=== PATIENT | male | born 1950 | race Caucasian/White ===

== ENCOUNTER → 2018-04-27 19:44 | Outpatient (CLI) | payer MEDICARE, BC, SELFPAY | PROVIDERS: Visit Provider Physician Assistant | DX: J02.9 Acute pharyngitis, unspecified (principal) | CPT/HCPCS: 87070 ==

== ENCOUNTER 2018-08-04 19:43 | Emergency (ER) | payer MEDICARE, BC, SELFPAY ==
[2018-08-04 19:51] VITALS: BP 146/85; PULSE 96; RESP 18; TEMP 38.2; O2SAT 99; BMI 25.4
--- NOTE | 2018-08-04 20:07 | ED_ITS ---
HPI - URI/Sore Throat General Chief Complaint: Upper Respiratory Symptoms Stated Complaint: sore throat/fever Time Seen by Provider: 08/04/18 19:45 Source: patient Mode of arrival: ambulatory Limitations: no limitations History of Present Illness HPI Narrative: 67-year-old male nonsmoker with history of AFib presents with a chief complaint of sore throat for the past few days. He states he has difficulty swallowing and has had fever as high as 100.2 and chills. He has some bilateral ear pain nasal congestion and occasional dry cough. He denies nausea, vomiting or diarrhea. He denies any chest pain, shortness of breath or abdominal pain. MD Complaint: fever, cough, sore throat, rhinorrhea and nasal congestion Onset (ago): day(s) Duration: constant Severity: moderate Relieving factors: nothing Exacerbating factors: swallowing Description of mucous: clear Able to tolerate fluids by mouth: Yes Context: sick contacts Associated symptoms: fever, chills and cough Treatments prior to arrival: none Related Data Home Medications Medication Instructions Recorded Confirmed aspirin 81 mg tablet,delayed 162 mg PO DAILY tab 01/06/18 04/27/18 release metoprolol succinate ER 25 mg 25 mg PO DAILY 01/06/18 04/27/18 tablet,extended release 24 hr vlpqqrxojegl-mslhspwq-qdlzif tablet 1 tab PO DAILY 01/06/18 04/27/18 sertraline 100 mg tablet 100 mg PO DAILY 01/06/18 04/27/18 Allergies Allergy/AdvReac Type Severity Reaction Status Date / Time No Known Drug Allergies Allergy Verified 08/04/18 19:57 Review of Systems Constitutional Reports chills, Reports fever(s), Denies lethargy and Denies weakness Eyes Denies change in vision, Denies eye discharge, Denies irritation and Denies loss of vision ENT Ears, Nose, Mouth, and Throat: Denies change in voice, Reports otalgia, Denies neck pain and Reports sore throat Cardiovascular Denies chest pain, Denies irregular heart rhythm, Denies lightheadedness, Denies palpitations, Denies dyspnea, Denies dyspnea on exertion and Denies orthopnea Respiratory Reports cough, Denies dyspnea, Denies dyspnea on exertion and Denies wheezing Gastrointestinal Gastrointestinal: Denies abdominal pain, Denies change in bowel habits, Denies d iarrhea, Denies nausea and Denies vomiting Genitourinary Denies hematuria, Denies flank pain, Denies urinary incontinence and Denies urinary urgency Musculoskeletal Denies neck pain Integumentary/Breasts Denies pruritus, Denies erythema, Denies rash and Denies wounds Neurologic Denies confusion, Denies loss of vision and Denies weakness Psychiatric Denies anxiety, Denies confusion, Denies depression, Denies homicidal ideation and Denies suicidal ideation Endocrine Denies palpitations Hematologic/Lymphatic Denies easy bruising Allergic/Immunologic Denies wheezing PFSH Social History Smoking Status: Never smoker Social History Smoking Status: Never smoker Exam Narrative Exam Narrative: GEN: AOx3 and in mild distress EYES: Pupils are equal, round, and reactive to light and accommodation. Extraoccular muscles are intact bilaterally. There is no subconjunctival hemorrhage or exudate. ENT: clear effusion L TM. No erythema or bulging. Clear post nasal drip, mild erythema. No tender lymphadenopathy CHEST: Lungs are clear to auscultation bilaterally and free of wheezes, rales, or rhonchi. Heart rate is regular rhythm, there are no murmurs, clicks, rubs, or gallops. There is no chest wall tenderness. ABD: Abdomen is soft and nontender. There is no guarding or rebound. Bowel sounds are normal in all 4 quadrants. There is no mass or organomegaly. EXT: Full painless ROM of all extremities with no loss of sensation or strength. SKIN: Warm, pink, and dry. No erythema or rash Initial Vital Signs Initial Vital Signs: Vital Signs Temperature 100.7 F H 08/04/18 19:51 Pulse Rate 96 H 08/04/18 19:51 Respiratory Rate 18 08/04/18 19:51 Blood Pressure 146/85 H 08/04/18 19:51 Pulse Oximetry 99 08/04/18 19:51 Course Orders Ordered: ED Orders 08/04/18 20:07 Influenza A and B by PCR Rapid Stat Vital Signs - 8 hr 08/04/18 19:51 08/04/18 20:53 Temperature 100.7 F H Pulse Rate 96 H 95 H Respiratory Rate 18 16 Blood Pressure 146/85 H 136/85 Pulse Oximetry 99 98 MDM - URI/Sore Throat Lab Data Lab Results 08/04/18 Range/Units 20:07 Influenza A & B (PCR) Negative (Negative) Point of Care Testing Rapid Strep A Negative Discharge Plan Departure Patient Disposition: Home Clinical Impression: Viral infection Pharyngitis Qualifiers: Pharyngitis/tonsillitis etiology: unspecified etiology Qualified Code(s): J02.9 - Acute pharyngitis, unspecified Discharge Date/Time: 08/04/18 20:53 Interventions: ED Discharge Assessment Last Done: 08/04/18 20:53 Instructions: DI for Viral Pharyngitis Activity Restrictions/Additional Instructions: *You have been diagnosed with [acute viral upper respiratory infection with pharyngitis] *What to do: *Take medications as directed: [id number]-[id number] cough and cold medicine, be sure to take something with the antihistamine to dried secretions which are the most likely cause of your symptoms *Follow up with your primary care provider in 2-3 days, call for an appointment. Let them know you were seen in the Emergency Department and that we ask that you be seen in follow up *Return to ER if you should have any new, worsening or concerning symptoms Prescriptions: No Action sertraline [Zoloft] 100 mg tablet 100 mg PO DAILY RF: 0 aspirin [Adult Aspirin Regimen] 81 mg tablet,delayed release (DR/EC) 162 mg PO DAILY RF: 0 metoprolol succinate 25 mg tablet extended release 24 hr 25 mg PO DAILY RF: 0 himceszlhaho-ikrmrmac-zsczah tablet 1 tab PO DAILY RF: 0
[2018-08-04 20:31] LABS: Influenza A and B by PCR Rapid Negative (Negative)
[2018-08-04 20:53] VITALS: BP 136/85; PULSE 95; RESP 16; O2SAT 98
== END 2018-08-04 20:53 | disposition home or self-care (01) ==
PROVIDERS: Emergency Provider Emergency Medicine
DX: J02.9 Acute pharyngitis, unspecified (principal)
CPT/HCPCS: 87400; 87880; 99282